=== PATIENT | female | born 1970 | race Caucasian/White ===

== ENCOUNTER 2019-05-16 02:22 | Emergency (ER) | payer MEDICAID ==
[~2019-05-16] VITALS: Ht 175.3 cm; Wt 113.4 kg
[2019-05-16 02:28] VITALS: BP 118/72
[2019-05-16] MEDS ORDERED: ONDANSETRON ODT 8 MG PO STA (02:54)
[2019-05-16] MEDS ORDERED: ONDANSETRON ODT 8 MG ONE (02:58)
[2019-05-16] MEDS ORDERED: KETOROLAC 30 MG/1 ML ONE (02:58)
[2019-05-16] MEDS ORDERED: KETOROLAC 30 MG/1 ML IM ONE (03:00)
[2019-05-16] MEDS ORDERED: GABAPENTIN 300 MG CAPSULE PO ONE (03:00)
[2019-05-16] MEDS ORDERED: GABAPENTIN 300 MG CAPSULE ONE (03:03)
== END 2019-05-16 03:25 | disposition home or self-care (01) ==
LOC: ED 03:10
DX: B02.29 Other postherpetic nervous system involvement (principal)
CPT/HCPCS: 96372; 99283; J1885; Q0162